=== PATIENT | female | born 1970 | race Caucasian/White ===

== ENCOUNTER → 2020-07-14 09:38 | Outpatient (CLI) | payer OTHER, SELFPAY ==
[2020-07-14 13:10] LABS: TSH w/ Reflex to FT4 1.86 uIU/mL (0.47-4.68)
== END ==
PROVIDERS: PCP Specialist; Referring Provider Specialist; Visit Provider Specialist
DX: F32.9 Major depressive disorder, single episode, unspecified (principal)
CPT/HCPCS: 36415; 84443